=== PATIENT | female | born 1990 | race Caucasian/White ===

== ENCOUNTER 2016-03-05 16:33 | Emergency (ER) | payer SELFPAY ==
[~2016-03-05] VITALS: Ht 152.4 cm; Wt 58.0 kg
[2016-03-05 16:37] VITALS: BP 100/63; PULSE 81; RESP 16; TEMP 98.2; O2SAT 98
== END 2016-03-05 17:00 | disposition left against medical advice (07) ==
LOC: NED 16:33
DX: Z00.8 Encounter for other general examination (principal); Z53.21 Procedure and treatment not carried out due to patient leaving prior to being seen by health care provider
CPT/HCPCS: 99281

== ENCOUNTER 2018-02-26 17:31 | Inpatient (IN) ==
--- NOTE | 2018-02-26 18:01 | ED ---
HPI General Chief complaint: Seizure Stated complaint: medical clearance Time Seen by Provider: 02/26/18 17:52 Source: patient Mode of arrival: ambulatory Limitations: no limitations History of Present Illness HPI narrative: Patient is a 27-year-old female with history of bipolar disorder , depression and anxiety, presents to the emergency room for psychiatric evaluation. Patient reports that she is on a bunch of psychiatric medications and 1 of them caused her have a seizure yesterday. Patient has since stopped that medications and she was actually seen at an ER yesterday for this. Patient is here to see a psychiatric screener as she is very depressed and she reports that "I need a lot of therapy." Patient denies any suicidal or homicidal ideation. Patient denies any history of seizures in the past. Patient denies any use of drugs or alcohol, no other complaints. Patient does follow-up as [facility], reports that they told her to come to the emergency room for evaluation. Related Data Home Medications Medication Instructions Recorded Confirmed norgestimate-ethinyl estradiol 1 tab PO DAILY 02/26/18 02/26/18 [Sprintec (28)] omeprazole magnesium [Prilosec] 20 mg PO DAILY 02/26/18 02/26/18 trazodone 150 mg PO DAILY 02/26/18 02/26/18 venlafaxine [Effexor XR] 150 mg PO DAILY 02/26/18 02/26/18 Allergies Allergy/AdvReac Type Severity Reaction Status Date / Time latex Allergy Mild RASH Verified 02/26/18 18:19 Review of Systems ROS: all other systems reviewed are negative PMFSH History History Provided By: Patient Medical History Medical History Anxiety (Acute) Bipolar disorder (Acute) Depression (Acute) Social History Social History Substance History: Past History Second Hand Smoke Exposure: Yes Smoking Status: Current every day smoker Tobacco Type: Cigarettes How Often Do You Have a Drink Containing Alcohol: Never Recent Travel in [facility] within the Last 8 Weeks: No Recent Out of Country Travel within the Last 8 Weeks: No Exam Narrative Exam Narrative: GENERAL: NAD SKIN: Focused skin assessment warm/dry. HEAD: Atraumatic. Normocephalic. EYES: Pupils equal and round. No scleral icterus. No injection or drainage. ENT: No nasal bleeding or discharge. Mucous membranes pink and moist. NECK: Trachea midline. No JVD. CARDIOVASCULAR: Regular rate and rhythm. No murmur appreciated. RESPIRATORY: No accessory muscle use. Clear to auscultation. Breath sounds equal bilaterally. GASTROINTESTINAL: Abdomen soft, non-tender, nondistended. Hepatic and splenic margins not palpable. MUSCULOSKELETAL: No obvious deformities. No clubbing. No cyanosis. No edema. NEUROLOGICAL: Awake and alert. No obvious cranial nerve deficits. Motor grossly within normal limits. Normal speech. PSYCHIATRIC: Flat mood and affect; -SI/-HI Course Initial Documented Vital Signs Temperature 97.9 F 02/26/18 17:34 Pulse Rate 102 H 02/26/18 17:34 Respiratory Rate 18 02/26/18 17:34 Blood Pressure 110/67 02/26/18 17:34 Pulse Oximetry 96 02/26/18 17:34 Last Documented Vital Signs Temperature 98.1 F 02/27/18 19:45 Pulse Rate 93 H 02/27/18 19:45 Respiratory Rate 19 02/27/18 19:45 Blood Pressure 94/69 L 02/27/18 19:45 Pulse Oximetry 95 02/27/18 19:45 Medical Decision Making MDM Narrative Medical decision making narrative: Patient is a 27-year-old female who presents the emergency room for evaluation of depression, bipolar disorder and anxiety. Patient denies any suicidal or homicidal ideation. Reports that she was told by [facility] to come to the emergency room for psychiatric evaluation. Psychiatric screening labs were ordered, once labs have resulted, will medically clear her. Dr. Fagan: I was asked by the nurse to place an admitting diagnosis and have not actually seen this patient. The patient has already left when she asked me so I looked up the psych note and place the admitting diagnosis. Medical Screen Exam Complete: Yes Emergency Medical Condition: Yes Differential Diagnosis Differential Diagnosis: Depression, anxiety, bipolar disorder Medical Records Medical records reviewed: Yes I reviewed the patient's medical records. Lab Data Result diagrams: 02/26/18 18:00 02/26/18 18:00 POC Results POC Urine Results Negative Lab Results 02/26/18 02/26/18 02/26/18 Range/Units 18:00 18:00 18:00 WBC 6.0 (4.0-11.0) th/mm3 RBC 4.47 (4.00-5.30) mil/mm3 Hgb 14.0 (11.6-15.3) gm/dL Hct 42.7 (35.0-46.0) % MCV 95.7 (80.0-100.0) fL MCH 31.4 (27.0-34.0) pg MCHC 32.8 (32.0-36.0) % RDW 13.8 (11.6-17.2) % Plt Count 169 (150-450) th/mm3 MPV 9.7 (7.0-11.0) fL Neut % (Auto) 63.1 (16.0-70.0) % Lymph % (Auto) 29.8 (9.0-44.0) % Bollinger % (Auto) 6.3 (0.0-8.0) % Eos % (Auto) 0.4 (0.0-4.0) % Baso % (Auto) 0.4 (0.0-2.0) % Neut # (Auto) 3.8 (1.8-7.7) th/mm3 Lymph # (Auto) 1.8 (1.0-4.8) th/mm3 Bollinger # (Auto) 0.4 (0.0-0.9) th/mm3 Eos # (Auto) 0.0 (0.0-0.4) th/mm3 Baso # (Auto) 0.0 (0.0-0.2) th/mm3 WBC Differential . Differential Comment Auto diff final Sodium 139 (136-145) meq/L Potassium 3.6 (3.5-5.1) meq/L Chloride 105 (98-107) meq/L Carbon Dioxide 28.0 (21.0-32.0) meq/L Anion Gap 6 (5-15) meq/L BUN 9 (7-18) mg/dL Creatinine 0.75 (0.50-1.00) mg/dL Estimated GFR Greater than 89 (>89) mL/min Random Glucose 82 (74-106) mg/dL Calcium 8.5 (8.5-10.1) mg/dL Magnesium 2.5 (1.5-2.5) mg/dL Total Bilirubin 0.3 (0.2-1.0) mg/dL AST 14 L (15-37) U/L ALT 19 (10-53) U/L Alkaline Phosphatase 51 (45-117) U/L Total Protein 7.8 (6.4-8.2) g/dL Albumin 3.9 (3.4-5.0) g/dL TSH 1.620 (0.358-3.740) uIU/mL Salicylates Less than 1.7 L (2.8-20.0) mg/dL Urine Opiates Screen (Neg) Acetaminophen Less than 2.0 L (10.0-30.0) mcg/mL Ur Barbiturates Screen (Neg) Ur Amphetamines Screen (Neg) U Benzodiazepines Scrn (Neg) Urine Cocaine Screen (Neg) U Cannabinoids Screen (Neg) Serum Alcohol Less than 3 (0-5) mg/dL 02/26/18 Range/Units 18:00 WBC (4.0-11.0) th/mm3 RBC (4.00-5.30) mil/mm3 Hgb (11.6-15.3) gm/dL Hct (35.0-46.0) % MCV (80.0-100.0) fL MCH (27.0-34.0) pg MCHC (32.0-36.0) % RDW (11.6-17.2) % Plt Count (150-450) th/mm3 MPV (7.0-11.0) fL Neut % (Auto) (16.0-70.0) % Lymph % (Auto) (9.0-44.0) % Bollinger % (Auto) (0.0-8.0) % Eos % (Auto) (0.0-4.0) % Baso % (Auto) (0.0-2.0) % Neut # (Auto) (1.8-7.7) th/mm3 Lymph # (Auto) (1.0-4.8) th/mm3 Bollinger # (Auto) (0.0-0.9) th/mm3 Eos # (Auto) (0.0-0.4) th/mm3 Baso # (Auto) (0.0-0.2) th/mm3 WBC Differential Differential Comment Sodium (136-145) meq/L Potassium (3.5-5.1) meq/L Chloride (98-107) meq/L Carbon Dioxide (21.0-32.0) meq/L Anion Gap (5-15) meq/L BUN (7-18) mg/dL Creatinine (0.50-1.00) mg/dL Estimated GFR (>89) mL/min Random Glucose (74-106) mg/dL Calcium (8.5-10.1) mg/dL Magnesium (1.5-2.5) mg/dL Total Bilirubin (0.2-1.0) mg/dL AST (15-37) U/L ALT (10-53) U/L Alkaline Phosphatase (45-117) U/L Total Protein (6.4-8.2) g/dL Albumin (3.4-5.0) g/dL TSH (0.358-3.740) uIU/mL Salicylates (2.8-20.0) mg/dL Urine Opiates Screen Neg (Neg) Acetaminophen (10.0-30.0) mcg/mL Ur Barbiturates Screen Neg (Neg) Ur Amphetamines Screen Neg (Neg) U Benzodiazepines Scrn Neg (Neg) Urine Cocaine Screen Neg (Neg) U Cannabinoids Screen Neg (Neg) Serum Alcohol (0-5) mg/dL Discharge Plan Discharge Disposition Patient Disposition: ED Admit(ED Internal Use Only) Discharge Order Discharge Orders: ED Use Only Admit Order (Routine); Ordered 02/27/18 Ordered By: Isadora Amezcua Discharge Details Diagnosis: Major depressive disorder Physicians Team ED Provider: Daniela Cox Primary Care Provider: UNKNOWN, Attending Provider: Theodore Newberry Status ED Status: Left Department Discharge Information Discharge Date/Time: 02/27/18 20:20
[2018-02-26 18:30] LABS: Baso % (Auto) 0.4 % (0.0-2.0); Eos % (Auto) 0.4 % (0.0-4.0); Hematocrit 42.7 % (35.0-46.0); Lymph # (Auto) 1.8 th/mm3 (1.0-4.8); Lymph % (Auto) 29.8 % (9.0-44.0); Mean Corpuscular HGB Conc 32.8 % (32.0-36.0); Mean Corpuscular Hemoglobin 31.4 pg (27.0-34.0); Mean Corpuscular Volume 95.7 fL (80.0-100.0); Mean Platelet Volume 9.7 fL (7.0-11.0); Mono # (Auto) 0.4 th/mm3 (0.0-0.9); Mono % (Auto) 6.3 % (0.0-8.0); Neut # (Auto) 3.8 th/mm3 (1.8-7.7); Neut % (Auto) 63.1 % (16.0-70.0); Platelet Count 169 th/mm3 (150-450); Red Blood Count 4.47 mil/mm3 (4.00-5.30); Red Cell Distribution Width 13.8 % (11.6-17.2)
[2018-02-26 18:39] LABS: Amphetamine Screen,Urine Neg (Neg); Barbiturate Screen,Urine Neg (Neg); Cannabinoid Screen,Urine Neg (Neg); Cocaine Screen,Urine Neg (Neg)
[2018-02-26 18:41] LABS: Opiate Screen,Urine Neg (Neg)
[2018-02-26 18:50] LABS: Albumin 3.9 g/dL (3.4-5.0); Anion Gap 6 meq/L (5-15); Blood Urea Nitrogen 9 mg/dL (7-18); Calcium 8.5 mg/dL (8.5-10.1); Chloride 105 meq/L (98-107); Glomerular Filtration Rate Greater Than 89 mL/min (>89); Glucose,Random 82 mg/dL (74-106); Magnesium 2.5 mg/dL (1.5-2.5); Potassium 3.6 meq/L (3.5-5.1); Sodium 139 meq/L (136-145)
[2018-02-26 18:51] LABS: Aspartate Aminotransferase 14 U/L (15-37)
[2018-02-26 19:01] LABS: Alanine Aminotransferase 19 U/L (10-53); Alkaline Phosphatase 51 U/L (45-117); Total Protein 7.8 g/dL (6.4-8.2)
[2018-02-26] MEDS ORDERED: traZODone 100 MG Tablet PO ONE (19:21)
[2018-02-27] MEDS ORDERED: Venlafaxine XR 75 MG Capsule PO ONE (11:10)
[2018-02-27] MEDS ORDERED: Aluminum/Magnesium/Simethacone Susp 30 ML UDC PO PRN (17:43)
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
[2018-02-27] MEDS ORDERED: Non-Formulary Drug (Venlafaxine [Effexor Xr] 150 MG) PO SCH (21:00)
[2018-02-28 08:38] LABS: Anion Gap 7 meq/L (5-15); Blood Urea Nitrogen 7 mg/dL (7-18); Calcium 8.8 mg/dL (8.5-10.1); Carbon Dioxide 29.4 meq/L (21.0-32.0); Chloride 101 meq/L (98-107); Chol/HDL Ratio 3.85 Ratio; Cholesterol 195 mg/dL (120-200); Glomerular Filtration Rate Greater Than 89 mL/min (>89); Glucose,Random 79 mg/dL (74-106); HDL Cholesterol 50.6 mg/dL (40.0-60.0); LDL Cholesterol,Calculated 127 mg/dL (0-99); Potassium 4.4 meq/L (3.5-5.1); Sodium 137 meq/L (136-145); Triglycerides 88 mg/dL (42-150)
[2018-02-28] MEDS ORDERED: Non-Formulary Drug (Venlafaxine [Effexor Xr] 150 MG) PO SCH (09:00)
[2018-02-28] MEDS ORDERED: Non-Formulary Drug (Trazodone [Trazodone] 150 MG) PO SCH (09:00)
[2018-02-28] MEDS ORDERED: OMEPRAZOLE MAGNESIUM 20 MG PO SCH (09:00)
[2018-02-28 13:39] LABS: Bacteria,Urine Few /hpf; Bilirubin,Urine Negative (Negative); Clarity,Urine Hazy (Clear); Color,Urine Yellow (Yellw/Straw); Glucose,Urine (UA) Negative (Negative); Leukocyte Esterase,Urine Moderate (Negative); Mucus,Urine Few /lpf (Occasional); Nitrite,Urine Negative (Negative); Specific Gravity,Urine 1.005 (1.002-1.035); Squamous Epithelial Cell,Urine 3 /hpf (0-5)
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
[2018-02-28] MEDS: Pantoprazole Sodium 20 MG DR Tablet PO SCH (15:21)
[2018-02-28] MEDS: traZODone 100 MG Tablet PO SCH (21:17)
[2018-03-01] MEDS: Pantoprazole Sodium 20 MG DR Tablet PO SCH (09:01)
[2018-03-01] MEDS: traZODone 100 MG Tablet PO SCH (20:36)
[2018-03-02] MEDS: Pantoprazole Sodium 20 MG DR Tablet PO SCH (08:31)
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
[2018-03-02] MEDS: Acetaminophen 325 MG Tablet PO PRN (21:16)
[2018-03-02] MEDS: traZODone 100 MG Tablet PO SCH (21:16)
[2018-03-03] MEDS: Acetaminophen 325 MG Tablet PO PRN ×3 (05:20→17:01)
[2018-03-03] MEDS: Pantoprazole Sodium 20 MG DR Tablet PO SCH (09:15)
--- NOTE | 2018-03-03 09:32 | P.PNPSY ---
Subjective Chief Complaint: Homicidal thoughts and plan to kill her former foster mother Remarks: March 03, 2018 Subjective: The patient continues to show high level of perturbation and inappropriate affect. She denies any problem with the current dosage of medication. She understands that her biological mother will be unable to care for her and that she must be placed in a fdc on discharge. The patient continues to endorse homicidal impulses and ideation with a plan to kill her foster mother. Foster mother has been warned of the patient's intent. Interestingly, the patient's question when informed of the informed duty to warn, was "how did you find her phone number". Review of Systems March 03, 2018 review of systems patient does complain of a headache but is obvious that this is not 1 of her migraines. Mental Status Examination Appearance: Disheveled Consciousness: Alert, Vigilant Orientation: x4 Motor Activity: Normal gait Speech: Unremarkable Language: Adequate Fund of Knowledge: Adequate Attention and Concentration: Adequate Memory: Unremarkable Mood: Anxious Affect: Anxious, Other (Inappropriate) Thought Process & Associations: Intact, Goal directed (On medication adjustment and therapy) Thought Content: Preoccupations (Preoccupied with diagnosis) Hallucination Type: None (Denies hallucinations but appears directed inwardly) Delusion Type: None Suicidal Ideation: No Suicidal Plan: No Suicidal Intention: No Homicidal Ideation: Yes Homicidal Plan: No Homicidal Intention: No Insight: Poor Judgment: Impulsive Assessment and Plan - Plan Plan: March 03, 2018 Patient's medication may be titrated up to 9 mg today and the patient observed for at least 48 hours thereafter for side effects. Justification for Continued Inpatient Stay: March 03, 2018 Patient is at risk for deterioration and executing a plan of homicide should she be discharged at this time from inpatient care
[2018-03-03] MEDS: traZODone 100 MG Tablet PO SCH (20:37)
[2018-03-04] MEDS: Pantoprazole Sodium 20 MG DR Tablet PO SCH (08:56)
[2018-03-04] MEDS: Acetaminophen 325 MG Tablet PO PRN ×2 (09:58→15:17)
--- NOTE | 2018-03-04 13:05 | P.PNPSY ---
Subjective Chief Complaint: Homicidal thoughts and plan to kill her former foster mother Remarks: Patient was seen and case discussed with nursing. Patient is pleasant and cooperative with exam. Patient says she has thoughts of hurting her stepmother but no longer wants to kill her. Eating and sleeping well. She continues to have auditory hallucinations of a voice named Molly telling her not to eat. She denies suicidal or homicidal ideation intent or plan. Review of Systems All other systems reviewed negative except as stated in HPI Mental Status Examination Appearance: Disheveled Consciousness: Alert, Vigilant Orientation: x4 Motor Activity: Normal gait Speech: Unremarkable Language: Adequate Fund of Knowledge: Adequate Attention and Concentration: Adequate Memory: Unremarkable Mood: Anxious Affect: Anxious, Other (Inappropriate) Thought Process & Associations: Intact, Goal directed (On medication adjustment and therapy) Thought Content: Preoccupations (Preoccupied with diagnosis) Hallucination Type: None (Denies hallucinations but appears directed inwardly) Delusion Type: None Suicidal Ideation: No Suicidal Plan: No Suicidal Intention: No Homicidal Ideation: Yes (Thoughts of hurting her stepmom but not killing her) Homicidal Plan: No Homicidal Intention: No Insight: Poor Judgment: Impulsive Assessment and Plan - Plan Plan: Continue current treatment plan Justification for Continued Inpatient Stay: Patient would decompensate in a less restrictive setting
[2018-03-04] MEDS: traZODone 100 MG Tablet PO SCH (21:16)
[2018-03-05 05:01] VITALS: RESP 16
[2018-03-05] MEDS: Pantoprazole Sodium 20 MG DR Tablet PO SCH (08:46)
[2018-03-05] MEDS: Acetaminophen 325 MG Tablet PO PRN (15:20)
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
[2018-03-05] MEDS: traZODone 100 MG Tablet PO SCH (20:58)
[2018-03-06 05:28] VITALS: BP 104/86; PULSE 68; TEMP 98; O2SAT 97
[2018-03-06] MEDS: Pantoprazole Sodium 20 MG DR Tablet PO SCH (09:09)
[2018-03-06] MEDS: Acetaminophen 325 MG Tablet PO PRN (13:37)
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
== END 2018-03-06 18:15 | disposition home or self-care (01) | DRG 881 ==
LOC: NEPD 17:31 → NEDA 02-27 17:48 → H260 02-27 20:44
PROVIDERS: ADMIT Psychiatry & Neurology Child & Adolescent Psychiatry; ATTEND Psychiatry & Neurology Child & Adolescent Psychiatry

== ENCOUNTER 2018-03-09 22:09 | Inpatient (IN) ==
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
[2018-03-10 01:34] LABS: Baso % (Auto) 0.3 % (0.0-2.0); Eos # (Auto) 0.1 th/mm3 (0.0-0.4); Hematocrit 38.6 % (35.0-46.0); Hemoglobin 13.1 gm/dL (11.6-15.3); Lymph # (Auto) 2.5 th/mm3 (1.0-4.8); Mean Corpuscular Hemoglobin 32.2 pg (27.0-34.0); Mean Corpuscular Volume 94.6 fL (80.0-100.0); Mean Platelet Volume 9.2 fL (7.0-11.0); Mono # (Auto) 0.4 th/mm3 (0.0-0.9); Mono % (Auto) 6.8 % (0.0-8.0); Neut # (Auto) 3.1 th/mm3 (1.8-7.7); Neut % (Auto) 50.9 % (16.0-70.0); Platelet Count 155 th/mm3 (150-450); Red Blood Count 4.08 mil/mm3 (4.00-5.30); Red Cell Distribution Width 13.7 % (11.6-17.2); White Blood Count 6.2 th/mm3 (4.0-11.0)
[2018-03-10 01:41] LABS: Amphetamine Screen,Urine Neg (Neg); Barbiturate Screen,Urine Neg (Neg); Cannabinoid Screen,Urine Neg (Neg); Cocaine Screen,Urine Neg (Neg); Opiate Screen,Urine Neg (Neg)
[2018-03-10 01:51] LABS: Alanine Aminotransferase 16 U/L (10-53); Albumin 3.6 g/dL (3.4-5.0); Anion Gap 5 meq/L (5-15); Aspartate Aminotransferase 9 U/L (15-37); Blood Urea Nitrogen 11 mg/dL (7-18); Calcium 8.2 mg/dL (8.5-10.1); Carbon Dioxide 29.8 meq/L (21.0-32.0); Chloride 107 meq/L (98-107); Glomerular Filtration Rate Greater Than 89 mL/min (>89); Glucose,Random 91 mg/dL (74-106); Potassium 3.7 meq/L (3.5-5.1); Sodium 142 meq/L (136-145)
[2018-03-10 02:01] LABS: Alkaline Phosphatase 54 U/L (45-117); Total Protein 7.4 g/dL (6.4-8.2)
[2018-03-10] MEDS ORDERED: traZODone 100 MG Tablet PO ONE (23:37)
[2018-03-11] MEDS ORDERED: Pantoprazole Sodium 20 MG DR Tablet PO ONE (09:14)
--- NOTE | 2018-03-11 10:02 | ED ---
HPI - Psych - General Time Seen by Psych Provider: 09:30 (On 03/11/18) Source: patient, RN notes reviewed, old records reviewed Mode of arrival: ambulatory Limitations: no limitations - History of Present Illness MD complaint: other (Homicidal ideation) Onset (ago): day(s) Duration: constant History of same: Yes Relieving factors: medication Exacerbating factors: other (Homelessness) Context: not taking psychiatric medications Associated psychiatric symptoms: homicidal ideation, other (Anxiety) Associated symptoms: denies other symptoms Treatments prior to arrival: none If self harm: other (Negative) - General Chief Complaint: Psychiatric Symptoms Stated Complaint: psych eval/vol Time Seen by Provider: 03/10/18 01:14 - History of Present Illness HPI Narrative: History of Present Illness HPI Narrative: Patient is a 27-year-old , single female, currently homeless, awaiting placement at [facility], on [facility], with record diagnosis of schizophrenia, bipolar disorder, discharge from our inpatient psychiatric unit on 03/06/2018, who presents to the ED reporting homicidal ideation with intent to kill "several people around me" . She reported to the ED provider " intent to kill her parents. The patient was admitted to our inpatient psychiatric unit on February 27 with same stated complaint but the target of her homicidal thoughts at that time were her father and her stepmother who lives in [place]. The patient at the present time has no means to get to [place]. Later in our interview the patient tells me that she has been out of her psychiatric medications since her discharge due to her insurance not paying for it. She specifically states that she has not taken the Invega. She had an appointment at [facility] for her medication evaluation on Tuesday but failed to show for that appointment and tells me she had no ride to get there. Patient believes that she needs to be in the hospital in order to get back on some medication that would help her manage her homicidal thoughts. Associated signs and symptoms include anxiety. The patient is seen. She is alert and oriented, casually dressed in [facility]. She appears anxious. Speech is clear, logical, normal rate and tone. She presents in childlike manner at times. There is no evidence of any hallucinations, denies any auditory or visual hallucinations at this time. Mood is anxious. Patient reports she has not had any medications since her discharge on the seventh of this month and is wanting to be put on another medication that her insurance would pay and that she can afford. The remainder of psychiatric treatment of system is negative. I attempted to call her mother Elisa Almanza at [phone]. No answer generic message left. (Neema Vega) - Related Data Home Medications Medication Instructions Recorded Confirmed norgestimate-ethinyl estradiol 1 tab PO DAILY 02/26/18 03/10/18 [Sprintec (28)] omeprazole magnesium [Prilosec] 20 mg PO DAILY 02/26/18 03/10/18 Previous Rx's Medication Instructions Recorded paliperidone [Invega] 9 mg PO DAILY 30 Days #90 tab 03/06/18 trazodone 100 mg PO HS 30 Days #30 tab 03/06/18 Allergies Allergy/AdvReac Type Severity Reaction Status Date / Time latex Allergy Mild RASH Verified 02/26/18 18:19 [facility] - History History Provided By: Patient - Medical History Medical History: Medical History (Last Updated 03/10/18 @ 01:07 by Patria [place]) Schizo affective schizophrenia Anxiety Bipolar disorder Depression - Tobacco History Second Hand Smoke Exposure: No Smoking Status: Never smoker Tobacco Type: Cigarettes - Alcohol History How Often Do You Have a Drink Containing Alcohol: Never - Substance Use History Substance History: No History of Abuse - Travel History Recent Travel in the [facility] Within the Last 8 Weeks: No Recent Travel Out of the Country Within the Last 8 Weeks: No - Immunization History Tetanus Immunization: Unsure Psychiatric History - Psychiatric History Psychiatric Treatment History: History of Psychiatric Treatment, History of Hospitalization in a Psychiatric Facility History of Inpatient Treatment: Yes Firearms in Home: No - Psychiatric History Patient last psychiatrically admitted at [facility] on February 27. She has also received treatment at [facility]. Currently patient is not taking any medication. (Neema eVga) - Legal History Patient may have had previous legal charges due to assault (Neema Vega) Physical Exam - General Limitations: no limitations Mental Status Examination Consciousness: Alert Orientation: x4 Motor Activity: Normal gait Speech: Unremarkable Language: Adequate Fund of Knowledge: Adequate Attention and Concentration: Easily distracted Memory: Unremarkable Mood: Anxious Affect: Appropriate Thought Process & Associations: Intact, Logical, Goal directed Thought Content: Other (Focus on her homicidal thoughts) Hallucination Type: None Delusion Type: None Suicidal Ideation: No Suicidal Plan: No Suicidal Intention: No Homicidal Ideation: Yes Homicidal Plan: No Homicidal Intention: No Insight: Poor Judgment: Impulsive Initial Documented Vital Signs Temperature 98.1 F 03/09/18 22:23 Pulse Rate 77 03/09/18 22:23 Respiratory Rate 16 03/09/18 22:23 Blood Pressure 103/71 03/09/18 22:23 Pulse Oximetry 99 03/09/18 22:23 Last Documented Vital Signs Temperature 98.7 F 03/11/18 06:22 Pulse Rate 78 03/11/18 06:22 Respiratory Rate 18 03/11/18 06:22 Blood Pressure 94/63 L 03/11/18 06:22 Pulse Oximetry 98 03/11/18 06:22 MDM - Psych - Diagnosis (1) Schizophrenia Code(s): F20.9 - Schizophrenia, unspecified Status: Acute - Lab Data Result diagrams: 03/10/18 01:26 03/10/18 01:26 - MDM Narrative Medical decision making narrative: 27-year-old female with history of schizophrenia, bipolar disorder, recently discharged from inpatient psychiatric unit and reporting that she has been unable to obtain her medication due to insurance problems. She returns to the emergency department reporting increasing homicidal ideation targeted at her father and her stepmother in [place]. Ultimately the patient finds herself homeless and awaiting placement at [facility]. The patient is vulnerable if she were to be discharge to the streets. In addition the patient is without her psychiatric medication and requires inpatient care in order to have psychiatric medication started. Case is discussed with Dr. Theodore Bee who recommends admission to inpatient psychiatric unit. (Neema Vega) - Lab Data Lab Results 03/10/18 03/10/18 03/10/18 Range/Units 01: 01: 01:26 WBC 6.2 (4.0-11.0) th/mm3 RBC 4.08 (4.00-5.30) mil/mm3 Hgb 13.1 (11.6-15.3) gm/dL Hct 38.6 (35.0-46.0) % MCV 94.6 (80.0-100.0) fL MCH 32.2 (27.0-34.0) pg MCHC 34.0 (32.0-36.0) % RDW 13.7 (11.6-17.2) % Plt Count 155 (150-450) th/mm3 MPV 9.2 (7.0-11.0) fL Neut % (Auto) 50.9 (16.0-70.0) % Lymph % (Auto) 41.0 (9.0-44.0) % [place] % (Auto) 6.8 (0.0-8.0) % Eos % (Auto) 1.0 (0.0-4.0) % Baso % (Auto) 0.3 (0.0-2.0) % Neut # (Auto) 3.1 (1.8-7.7) th/mm3 Lymph # (Auto) 2.5 (1.0-4.8) th/mm3 [place] # (Auto) 0.4 (0.0-0.9) th/mm3 Eos # (Auto) 0.1 (0.0-0.4) th/mm3 Baso # (Auto) 0.0 (0.0-0.2) th/mm3 WBC Differential . Differential Comment Auto diff final Sodium 142 (136-145) meq/L Potassium 3.7 (3.5-5.1) meq/L Chloride 107 (98-107) meq/L Carbon Dioxide 29.8 (21.0-32.0) meq/L Anion Gap 5 (5-15) meq/L BUN 11 (7-18) mg/dL Creatinine 0.73 (0.50-1.00) mg/dL Estimated GFR Greater than 89 (>89) mL/min Random Glucose 91 (74-106) mg/dL Calcium 8.2 L (8.5-10.1) mg/dL Magnesium 2.0 (1.5-2.5) mg/dL Total Bilirubin 0.2 (0.2-1.0) mg/dL AST 9 L (15-37) U/L ALT 16 (10-53) U/L Alkaline Phosphatase 54 (45-117) U/L Total Protein 7.4 (6.4-8.2) g/dL Albumin 3.6 (3.4-5.0) g/dL TSH 3.280 (0.358-3.740) uIU/mL Urine Opiates Screen Neg (Neg) Ur Barbiturates Screen Neg (Neg) Ur Amphetamines Screen Neg (Neg) U Benzodiazepines Scrn Neg (Neg) Urine Cocaine Screen Neg (Neg) U Cannabinoids Screen Neg (Neg) Serum Alcohol Less than 3 (0-5) mg/dL
[2018-03-11] MEDS ORDERED: traZODone 50 MG Tablet PO PRN (10:22)
[2018-03-11] MEDS ORDERED: Aluminum/Magnesium/Simethacone Susp 30 ML UDC PO PRN (10:22)
[2018-03-11] MEDS ORDERED: Bisacodyl 10 MG Supp RECTAL PRN (10:22)
[2018-03-11] MEDS: Senna/Docusate Sodium 8.6/50 MG Tablet PO SCH (22:28)
[2018-03-12] MEDS ORDERED: OMEPRAZOLE MAGNESIUM 20 MG PO SCH (09:00)
[2018-03-12] MEDS ORDERED: NORGESTIMATE ETHINYL ESTRADIOL PO SCH (09:00)
[2018-03-12] MEDS: Senna/Docusate Sodium 8.6/50 MG Tablet PO SCH ×2 (09:23→20:33)
[2018-03-12 10:03] LABS: Anion Gap 5 meq/L (5-15); Blood Urea Nitrogen 11 mg/dL (7-18); Calcium 8.6 mg/dL (8.5-10.1); Carbon Dioxide 31.6 meq/L (21.0-32.0); Chloride 101 meq/L (98-107); Glomerular Filtration Rate Greater Than 89 mL/min (>89); Glucose,Random 57 mg/dL (74-106); Potassium 3.9 meq/L (3.5-5.1); Sodium 138 meq/L (136-145)
[2018-03-12 10:04] LABS: Cholesterol 184 mg/dL (120-200); Triglycerides 179 mg/dL (42-150)
[2018-03-12 10:19] LABS: Chol/HDL Ratio 3.66 Ratio; HDL Cholesterol 50.2 mg/dL (40.0-60.0); LDL Cholesterol,Calculated 98 mg/dL (0-99)
[2018-03-12] MEDS: Pantoprazole Sodium 20 MG DR Tablet PO SCH (11:41)
[2018-03-12] MEDS: NORGESTIMATE ETHINYL ESTRADIOL PO SCH (11:46)
--- NOTE | 2018-03-12 12:51 | P.HPPSY ---
Provisional Diagnosis Admission Date: March 11, 2018 10:22 Competence Certification of Person's Competence To Provide Express and Informed Consent I have personally examined Marry Edward, a person being served at [facility] on, March 12, 2018 1247. Express and informed consent means consent voluntarily given in writing, by a competent person, after sufficient explanation and disclosure of the subject matter involved to enable the person to make a knowing and willful decision without any element of force, fraud, deceit, duress, or other form of constraint or coercion. This person is 18 years of age or older, is not now known to be incompetent to consent to treatment with a guardian advocate, and does not have a health care surrogate or proxy currently making medical treatment decisions. I have found this person to be one of the following: [X] Competent to provide express and informed consent, as defined above, for voluntary admission to this facility and is competent to provide express and informed consent for treatment. He/she has the consistent capacity to make well reasoned, willful, and knowing decisions concerning his or her medical or mental health treatment. The person fully and consistently understands the purpose of the admission for examination/placement and is fully capable of personally exercising all rights assured under [place] [] Incompetent to provide express and informed consent to voluntary admission, and this is incompetent to provide express and informed consent to treatment. The person must be transferred to involuntary status and a petition for a guardian advocate filed with the Circuit Court. [] Refusing to provide express and informed consent to voluntary admission but is competent to provide express and informed consent for treatment. The person must be discharged or transferred to involuntary status. Form shall be completed within 24 hours of a person's arrival at the receiving facility and filed in the clinical record of each person: 1. Admitted on a voluntary basis 2. Permitted to provide express and informed consent to his/her own treatment 3. Allowed to transfer from involuntary to voluntary status 4. Prior to permitting a person to consent to his or her own treatment after having been previously found incompetent to consent to treatment. History of Present Illness Capacity: Has capacity Chief Complaint: HI History of Present Illness: Patient is a 27-year-old female readmitted here to the hospital after recent discharge 6 days ago. Patient is here because her health insurance would not pay for her p.o. with inVega 9 mg and patient relapsed with persistent homicidal ideation. Patient does not have any thoughts of hurting anybody around her but continues to have the same intrusive thoughts of hurting her adoptive parents and her biological father. These 3 individuals are either in [place] or [place]. She has these fleeting thoughts but does not have any specific plans or intent of doing so. Mood has been depressed and patient denies suicidal or homicidal ideation intent or plan. Though, she is concerned about her anorexia and says that she wants agents to help stimulate her appetite. Continues to have auditory hallucinations of a voice named Molly. Past psychiatric history:hx of bipolar/schizophrenia "also includes a 12-month stay at a residential psychiatric hospital in [place]. Patient's treatment history is dotted with adverse effects from medication including grand mal seizures. Given the patient's history of institutionalization there is a question of the accuracy and intent of some of her responses. She would for instance tell me that those were all the medication she had adverse responses to but when I mention treating her with a different medication she said she was either allergic or had seizures as a result of that medication. She particularly singled out Seroquel as having caused a seizure during which she fell to the ground and shook all over her with herself and was amnesic for the event. Her description seemed a little bit too pat for something she was amnesic for. It was clear she had told of her experience in many past histories." Medical hx: see chart Fam hx: Patient's mother has bipolar disorder. Social hx: Patient has a history of marijuana use. Though she says she is not using at this time. She has 2 kids. Patient is interested in living at an [facility] - Inpatient Certification I certify that the inpatient services were ordered in accordance with Medicare regulations governing the order. This includes certification that hospital inpatient services are reasonable and necessary and in the case of services not specified as inpatient-only under 42 CFR 419.22(n), that they are appropriately provided as inpatient services in accordance to with the 2-midnight benchmark under 43 CFR 412.3(e) I certify that inpatient psychiatric hospital services are medically necessary. Evaluation and treatment and/or diagnostic testing are expected to improve the patient's condition. The patient needs on a daily basis, active treatment furnished directly by or requiring the supervision of inpatient psychiatric facility personnel. Estimated Total Length of Stay (Days): 7 Plans for Post Hospital Care: Not yet determined Review of Systems All other systems reviewed negative except as stated in [facility] - History History Provided By: Patient - Medical History Medical History: Medical History (Last Updated 03/10/18 @ 01:07 by Patria Hills) Schizo affective schizophrenia Anxiety Bipolar disorder Depression - Tobacco History Second Hand Smoke Exposure: No Tobacco Use In Past 30 Days: Yes Smoking Status: Current every day smoker Tobacco Type: Cigarettes - Alcohol History How Often Do You Have a Drink Containing Alcohol: Never - Substance Use History Substance History: Past History - Travel History Recent Travel in the [facility] Within the Last 8 Weeks: No Recent Travel Out of the Country Within the Last 8 Weeks: No - Immunization History Tetanus Immunization: Unsure Hx Influenza Vaccine This Season: No Medications and Allergies Active Medications: Active Medications Al Hydrox/Mg Hydrox/Simethicone (Mag-Al Plus Susp Liq) 30 ml PO Q6H PRN PRN Reason: DYSPEPSIA Al Hydroxide/Mg Hydroxide (Milk Of Magnesia Liq) 30 ml PO Q12H PRN PRN Reason: Mild Constipation Last Admin: 03/12/18 11:46 Dose: 30 ml Bisacodyl (Dulcolax Supp) 10 mg RECTAL DAILY PRN PRN Reason: SEVERE CONSITIPATION Hydroxyzine HCl (Atarax) 50 mg PO Q6H PRN PRN Reason: ANXIETY Last Admin: 03/11/18 22:24 Dose: 50 mg Lactulose (Lactulose Liq) 30 ml PO DAILY PRN PRN Reason: SEVERE CONSITIPATION Pantoprazole Sodium (Protonix) 20 mg PO DAILY [facility] Last Admin: 03/12/18 11:41 Dose: 20 mg Patient Own Medication: Norgestimate-Ethinyl Estradiol [Sprintec (28)] 0 each PO DAILY [facility] Last Admin: 03/12/18 11:46 Dose: Not Given Senna/Docusate Sodium (Sarahi-Colace) 1 tab PO BID [facility] Last Admin: 03/12/18 09:23 Dose: Not Given Sennosides (Senokot) 17.2 mg PO Q12H PRN PRN Reason: Moderate Constipation Trazodone HCl (Desyrel) 50 mg PO HS PRN PRN Reason: INSOMNIA Last Admin: 03/11/18 22:24 Dose: 50 mg Allergies Allergy/AdvReac Type Severity Reaction Status Date / Time latex Allergy Mild RASH Verified 02/26/18 18:19 Home Medications Medication Instructions Recorded Confirmed Type norgestimate-ethinyl estradiol 1 tab PO DAILY 02/26/18 03/10/18 History [Sprintec (28)] omeprazole magnesium [Prilosec] 20 mg PO DAILY 02/26/18 03/10/18 History Results - Labs CBC & Chem 7: 03/10/18 01:26 03/12/18 09:09 Labs: Laboratory Results - last 24 hr 03/12/18 09:09 Sodium 138 Potassium 3.9 Chloride 101 Carbon Dioxide 31.6 Anion Gap 5 BUN 11 Creatinine 0.76 Estimated GFR Greater than 89 Random Glucose 57 L Calcium 8.6 Triglycerides 179 H Cholesterol 184 LDL Cholesterol, Calc 98 HDL Cholesterol 50.2 Cholesterol/HDL Ratio 3.66 Exam Vital signs: Vital Signs 03/11/18 17:43 03/12/18 07:04 Temperature 98.4 F 97.9 F Pulse Rate 82 73 Respiratory Rate 16 16 Blood Pressure 100/69 108/42 L Pulse Oximetry 97 97 Intake & Output 03/11/18 03/12/18 03/12/18 18:59 06:59 18:59 Weight 49.442 kg Other: Date of Last Bowel Movement 03/06/18 Weight On Admission 49.442 kg Mental Status Examination Appearance: Appropriate Consciousness: Alert Orientation: x4 Motor Activity: Normal gait Speech: Unremarkable Language: Adequate Fund of Knowledge: Adequate Attention and Concentration: Easily distracted Memory: Unremarkable Mood: Anxious Affect: Appropriate Thought Process & Associations: Intact, Logical, Goal directed Thought Content: Other (Focus on her homicidal thoughts) Hallucination Type: None Delusion Type: None Suicidal Ideation: No Suicidal Plan: No Suicidal Intention: No Homicidal Ideation: Yes Homicidal Plan: No Homicidal Intention: No Insight: Poor Judgment: Poor Assessment and Plan - Assessment (1) Schizophrenia Code(s): F20.9 - Schizophrenia, unspecified Status: Acute - Plan Plan: Given the need for insurance to pay for medications and patient's desire to gain weight, we will start her on Zyprexa 5 mg p.o. twice daily and Remeron 15 mg p.o. nightly. She can have hydroxyzine for anxiety Justification for Continued Inpatient Stay: Patient would decompensate in a less restrictive setting
[2018-03-12 13:14] LABS: Hemoglobin A1c 5.3 % (4.3-6.0)
[2018-03-12] MEDS: Mirtazapine 15 MG Tablet PO SCH (20:35)
[2018-03-13] MEDS: NORGESTIMATE ETHINYL ESTRADIOL PO SCH (08:16)
[2018-03-13] MEDS: Senna/Docusate Sodium 8.6/50 MG Tablet PO SCH ×2 (08:16→21:43)
[2018-03-13] MEDS: Pantoprazole Sodium 20 MG DR Tablet PO SCH (08:16)
--- NOTE | 2018-03-13 14:23 | P.PNPSY ---
Subjective Chief Complaint: Homicidal impulses with plan Remarks: March 13, 2018 Subjective: Patient recently discharged on in Clemons 9 mg daily. Patient was unable to afford and her insurance company would not pay for it. Patient therefore has been noncompliant with medications and has return of her homicidal ideation with a plan to kill her foster mother. Patient is also having conflict with her biological mother and is likely going to require placement. Patient feels that the Zyprexa 5 mg that she was given over the weekend has been agreeable and she is willing to allow the dosage to be titrated to a point where she no longer feels homicidal. Given the patient's history of noncompliance with medication, she had been started on in Clemons with the idea of titrating upward on Invega Sustenna. The Zyprexa the patient been taking will not allow for this as easily as Risperdal. Therefore the patient will be started on oral Risperdal with the idea of eventually placing the patient on the long-acting Risperdal Consta. Review of Systems March 13, 2018 ROS: Patient has multiple somatic complaints most center around her high level of anxiety. Mental Status Examination Appearance: Disheveled Consciousness: Alert Orientation: x4 Motor Activity: Normal gait Speech: Unremarkable Language: Adequate Fund of Knowledge: Adequate Attention and Concentration: Easily distracted Memory: Unremarkable Mood: Anxious Affect: Anxious Thought Process & Associations: Intact, Logical, Goal directed Thought Content: Other (Focus on her homicidal thoughts) Hallucination Type: None Delusion Type: None Suicidal Ideation: No Suicidal Plan: No Suicidal Intention: No Homicidal Ideation: Yes Homicidal Plan: No Homicidal Intention: No Insight: Poor Judgment: Poor Assessment and Plan - Assessment (1) Schizophrenia Code(s): F20.9 - Schizophrenia, unspecified Status: Acute - Plan Plan: Given the need for insurance to pay for medications and patient's desire to gain weight, we will start her on Zyprexa 5 mg p.o. twice daily and Remeron 15 mg p.o. nightly. She can have hydroxyzine for anxiety. March 13, 2018 patient will be switched from Zyprexa to Risperdal so that Risperdal Consta can be time if the patient continues noncompliant with medication. Justification for Continued Inpatient Stay: March 13, 2018 Evidence that the patient will regress as she did before if transferred at this time to lower level of care. It appears the patient will need to be titrated upward on Risperdal to a point where we can consider transferring to intensive outpatient therapy where the titrate dose of Risperdal can be replaced gradually with injections of Risperdal Consta. Given the insurance companies reluctance to pay for the in Clemons which was working and the patient happy with medication there may be a problem with the insurance company paying for Risperdal Consta.
[2018-03-13] MEDS: Mirtazapine 15 MG Tablet PO SCH (21:10)
[2018-03-14] MEDS: Senna/Docusate Sodium 8.6/50 MG Tablet PO SCH ×2 (08:14→21:21)
[2018-03-14] MEDS: NORGESTIMATE ETHINYL ESTRADIOL PO SCH (08:14)
[2018-03-14] MEDS: Pantoprazole Sodium 20 MG DR Tablet PO SCH (08:14)
--- NOTE | 2018-03-14 13:00 | P.PNPSY ---
Subjective Chief Complaint: Homicidal impulses with plan Remarks: March 14, 2018 Subjective: Patient continues to be quite somatic and questioning whether or not Atarax has caused her to lose her balance at times and believes based on her mother's Internet explorations that Atarax can cause seizures. Patient reassured that she just needs simply needs to sit down when she first takes Atarax until she feels stable when standing. Patient continues to about her homicidal impulses toward her foster mother. Patient is compliant with her medications sleeping and having no extraparametal are other side effects from the Risperdal. Review of Systems Complains of problems with balance associated with a bit of postural hypotension which he attributes to Atarax. Mental Status Examination Appearance: Disheveled Consciousness: Alert Orientation: x4 Motor Activity: Normal gait Speech: Unremarkable Language: Adequate Fund of Knowledge: Adequate Attention and Concentration: Easily distracted Memory: Unremarkable Mood: Anxious Affect: Anxious Thought Process & Associations: Intact, Logical, Goal directed Thought Content: Other (Focus on her homicidal thoughts) Hallucination Type: None Delusion Type: None Suicidal Ideation: No Suicidal Plan: No Suicidal Intention: No Homicidal Ideation: Yes Homicidal Plan: No Homicidal Intention: No Insight: Poor Judgment: Poor Assessment and Plan - Assessment (1) Schizophrenia Code(s): F20.9 - Schizophrenia, unspecified Status: Acute - Plan Plan: Given the need for insurance to pay for medications and patient's desire to gain weight, we will start her on Zyprexa 5 mg p.o. twice daily and Remeron 15 mg p.o. nightly. She can have hydroxyzine for anxiety. March 13, 2018 patient will be switched from Zyprexa to Risperdal so that Risperdal Consta can be time if the patient continues noncompliant with medication. Justification for Continued Inpatient Stay: March 14 2018 Patient remains extremely anxious and expresses homicidal ideation at times. She is also in conflict with her mother and is awaiting a placement outside her mother's care.
[2018-03-14] MEDS: Mirtazapine 15 MG Tablet PO SCH (21:09)
[2018-03-15] MEDS: Pantoprazole Sodium 20 MG DR Tablet PO SCH (09:00)
[2018-03-15] MEDS: Senna/Docusate Sodium 8.6/50 MG Tablet PO SCH ×2 (09:01→20:39)
[2018-03-15] MEDS: NORGESTIMATE ETHINYL ESTRADIOL PO SCH (09:01)
--- NOTE | 2018-03-15 13:24 | XR ---
EXAM DATE: 03/15/2018 1:12 PM EST AGE/SEX: 27 years / Female INDICATIONS: Evaluate for pneumonia, pneumothorax, or communicable disease. [facility] screening. CLINICAL DATA: This is the patient's initial encounter. Patient reports that signs and symptoms have been present for 1 day and indicates a pain score of 0/10. MEDICAL/SURGICAL HISTORY: None. None. COMPARISON: No prior exams available for comparison. FINDINGS: The lungs are clear without infiltrate, nodule, or mass. There is no appreciable pleural effusion for technique. Heart and mediastinum are unremarkable. CONCLUSION: No acute cardiopulmonary disease. Electronically signed by: Nancy Deleon MD Board Certified Radiologist 03/15/2018 1:22 PM EST
--- NOTE | 2018-03-15 14:02 | P.PNPSY ---
Subjective Chief Complaint: Homicidal impulses with plan Remarks: March 15, 2018 Subjective: Patient is ready for transfer to an [facility] providing there is no further interference by the biological mother. The patient states that the biological mother just wants to keep her check and does not want to surrender the check to the [facility]. Patient is calm today and like yesterday feels that the Atarax is helping rather than causing her to be unbalanced. Review of Systems March 15, 2018 Patient has no complaints today. Mental Status Examination Appearance: Disheveled Consciousness: Alert Orientation: x4 Motor Activity: Normal gait Speech: Unremarkable Language: Adequate Fund of Knowledge: Adequate Attention and Concentration: Easily distracted Memory: Unremarkable Mood: Appropriate Affect: Appropriate Thought Process & Associations: Intact, Logical, Goal directed Thought Content: Other (Focus on her homicidal thoughts) Hallucination Type: None Delusion Type: None Suicidal Ideation: No Suicidal Plan: No Suicidal Intention: No Homicidal Ideation: No Homicidal Plan: No Homicidal Intention: No Insight: Poor Judgment: Poor Assessment and Plan - Assessment (1) Schizophrenia Code(s): F20.9 - Schizophrenia, unspecified Status: Acute - Plan Plan: Given the need for insurance to pay for medications and patient's desire to gain weight, we will start her on Zyprexa 5 mg p.o. twice daily and Remeron 15 mg p.o. nightly. She can have hydroxyzine for anxiety. March 13, 2018 patient will be switched from Zyprexa to Risperdal so that Risperdal Consta can be time if the patient continues noncompliant with medication. March 15, 2018 patient is expected to be discharged to the [facility] tomorrow. Justification for Continued Inpatient Stay: March 15, 2018 patient is expected to be placed at [facility] tomorrow if there is no regression.
[2018-03-15 17:05] VITALS: RESP 16; TEMP 98.1
[2018-03-15] MEDS: Mirtazapine 15 MG Tablet PO SCH (20:38)
[2018-03-16 04:44] VITALS: BP 95/53; PULSE 90; O2SAT 100
[2018-03-16] MEDS: Pantoprazole Sodium 20 MG DR Tablet PO SCH (08:17)
[2018-03-16] MEDS: Senna/Docusate Sodium 8.6/50 MG Tablet PO SCH (08:19)
[2018-03-16] MEDS: NORGESTIMATE ETHINYL ESTRADIOL PO SCH (08:19)
--- NOTE | 2018-03-17 10:53 | P.DSPSY ---
Psychiatry Discharge Summary Inpatient Psychiatric care?: Yes Advance Directives: No Mental Health Advance Directive: No Health Care Proxy: No - Admission Admission Date: March 11, 2018 10:22 Brief History: Patient is a 27-year-old female readmitted here to the hospital after recent discharge 6 days ago. Patient is here because her health insurance would not pay for her p.o. with inVega 9 mg and patient relapsed with persistent homicidal ideation. Patient does not have any thoughts of hurting anybody around her but continues to have the same intrusive thoughts of hurting her adoptive parents and her biological father. These 3 individuals are either in [place] or [place]. She has these fleeting thoughts but does not have any specific plans or intent of doing so. Mood has been depressed and patient denies suicidal or homicidal ideation intent or plan. Though, she is concerned about her anorexia and says that she wants agents to help stimulate her appetite. Continues to have auditory hallucinations of a voice named Molly. Past psychiatric history:hx of bipolar/schizophrenia "also includes a 12-month stay at a residential psychiatric hospital in [place]. Patient's treatment history is dotted with adverse effects from medication including grand mal seizures. Given the patient's history of institutionalization there is a question of the accuracy and intent of some of her responses. She would for instance tell me that those were all the medication she had adverse responses to but when I mention treating her with a different medication she said she was either allergic or had seizures as a result of that medication. She particularly singled out Seroquel as having caused a seizure during which she fell to the ground and shook all over her with herself and was amnesic for the event. Her description seemed a little bit too pat for something she was amnesic for. It was clear she had told of her experience in many past histories." Medical hx: see chart Fam hx: Patient's mother has bipolar disorder. Social hx: Patient has a history of marijuana use. Though she says she is not using at this time. She has 2 kids. Patient is interested in living at an [facility] Tobacco Use In Past 30 Days: Yes How Often Do You Have a Drink Containing Alcohol: Never Hospital Course: March 16, 2017 l Course in the hospital: Patient had an uneventful course in the hospital with change of medication from in Clemons which she was unable to purchase to risperidone. Patient had no difficulties with the change and was discharged home - Discharge Discharge Date: 03/16/18 Discharge Disposition: Home - Discharge Time > 30 minutes Mental Status Examination Appearance: Appropriate Consciousness: Alert Orientation: x4 Motor Activity: Normal gait Speech: Unremarkable Language: Adequate Fund of Knowledge: Adequate Attention and Concentration: Easily distracted Memory: Unremarkable Mood: Appropriate Affect: Appropriate Thought Process & Associations: Intact, Logical, Goal directed Thought Content: Other (Focus on her homicidal thoughts) Hallucination Type: None Delusion Type: None Suicidal Ideation: No Suicidal Plan: No Suicidal Intention: No Homicidal Ideation: No Homicidal Plan: No Homicidal Intention: No Insight: Poor Judgment: Poor Discharge/Advance Care Plan Your Health Problems Are: Anxiety - Results Vital Signs: Last Vital Signs Temp 98.1 F 03/16/18 04:43 Pulse 90 03/16/18 04:43 Resp 16 03/16/18 04:43 BP 95/53 L 03/16/18 04:43 Pulse Ox 100 03/16/18 04:43 Lab Results: Laboratory Results Hemoglobin A1c 5.3 % (4.3-6.0) 03/12/18 09:09 Triglycerides 179 mg/dL (42-150) H 03/12/18 09:09 Cholesterol 184 mg/dL (120-200) 03/12/18 09:09 LDL Cholesterol, Calc 98 mg/dL (0-99) 03/12/18 09:09 HDL Cholesterol 50.2 mg/dL (40.0-60.0) 03/12/18 09:09 TSH 3.280 uIU/mL (0.358-3.740) 03/10/18 01:26 Summary of Procedures: None Imaging: ITS Impressions Chest X-Ray 03/15/18 00:00 CONCLUSION: No acute cardiopulmonary disease. Pending Results: None - Medications Number of antipsychotic medications at discharge: 1 - Discharge Care Plan Goals to Promote Your Health: * To prevent worsening of your condition and complications * To maintain your health at the optimal level Directions to Meet Your Goals: Take your medications as prescribed Follow your dietary instruction Follow activity as directed Keep your appointments as scheduled Take your immunizations and boosters as scheduled If your symptoms worsen call your PCP, if no PCP go to Urgent Care Center or Emergency Room For 20/09 questions related to your inpatient stay or results of tests pending at discharge, please contact Dr. Cesar Torres MD at Smoking is Dangerous to Your Health. Avoid second hand smoking
== END 2018-03-16 13:00 | disposition home or self-care (01) | DRG 885 ==
LOC: NEPE 22:09 → NEDA 03-11 10:22 → H260 03-11 11:46
PROVIDERS: ADMIT Psychiatry & Neurology Child & Adolescent Psychiatry; ATTEND Psychiatry & Neurology Child & Adolescent Psychiatry